=== PATIENT | female | born 1960 | race Caucasian/White ===

== ENCOUNTER 2019-10-09 17:17 | Emergency (ER) | payer OTHER, SELFPAY ==
[2019-10-09 17:50] VITALS: BP 153/73; PULSE 63; RESP 18; TEMP 36.6; O2SAT 100
--- NOTE | 2019-10-09 18:10 | ED.GENADULT ---
HPI - General Adult General Chief complaint: Upper Respiratory Infection Stated complaint: COUGH/SORE THROAT Source: patient and RN notes reviewed Mode of arrival: ambulatory Limitations: no limitations History of Present Illness HPI narrative: I just this patient has had onset of a sore throat x3 days. She states this never been severe and is actually better today than it has been. She is coughed only twice today and none previously and there is not been any chest pain or shortness of breath. She has not had any fever. She has had no nausea, no vomiting, no diarrhea. She has had no hematuria, no dysuria, no pyuria. She has had no rashes. She denies any ear pain or drainage from the ears. She has had no nasal drainage. She has been traveling. She is from [place] and is visiting her grandchildren here in [place]. She would like to be certain that she does not have strep throat before she goes to visit them this evening. She has had no known exposure to anyone with strep throat, mono, influenza, bronchitis, pneumonia that she is aware of. Related Data Home Medications Medication Instructions Recorded Confirmed [facility] 10/09/19 Allergies Allergy/AdvReac Type Severity Reaction Status Date / Time No Known Allergies Allergy Verified 10/09/19 17:59 Review of Systems Review of Systems: Narrative: CONSTITUTIONAL: Denies fever, chills, or sweats. Noncontributory except as pertains to the past medical history and history of present illness. EYES: Denies visual changes, redness, or discharge. ENT: Denies rhinorrhea, congestion, sore throat, or otalgia. CARDIOVASCULAR: Denies chest pain, palpitations, or edema. RESPIRATORY: Denies cough or dyspnea. GASTROINTESTINAL: Denies abdominal pain, nausea, vomiting, or diarrhea. GENITOURINARY: Denies dysuria or hematuria. SKIN: Denies rash or itching. MUSCULOSKELETAL: Denies back pain, joint pain, or myalgia. NEUROLOGIC: Denies headache, numbness, or weakness. PSYCHIATRIC: Denies anxiety or depression. PMFSH Comments At time of signature, I have reviewed and agree with nursing past medical, surgical, social, and family history.Please see nursing chart for further information. There is no relevant family history pertinent to the presenting complaint. Exam Narrative: Exam Narrative: GENERAL: Well-appearing, well-nourished, and in no acute distress. HEAD: Normocephalic, atraumatic. EYES: PERRLA and EOMI. EARS: TM's clear bilaterally and the canals are clear. NOSE: Nares clear, no rhinorrhea or epistaxis. THROAT:Mucous membranes moist.Oropharynx normal without erythema or exudates. NECK: Supple. No adenopathy of the neck, supraclavicular, axillary, or inguinal areas. RESPIRATORY: No respiratory distress. Airway patent. Respirations non-labored. Clear to auscultation. There are no wheezes, no rales, no retractions, no use accessory muscle respirations. Patient's not cyanotic and not dyspneic. Pulse ox on room air is 100% current temperature is 36.6 ?C. HEART: Regular rate and rhythm. No murmur heard. Normal peripheral pulses. ABDOMEN: Soft, nontender, nondistended, normal active bowel sounds.No masses. No rebound or guarding, No organomegaly. There is no CVA pain. No pain McBurney's point. She has a negative Hughes sign and negative Rovsing sign. There are no pulsatile masses no audible bruits. EXTREMITIES: No clubbing/cyanosis/ edema. Normal strength & range of motion. SKIN: Warm, dry.Normal color. There are no skin rash or skin lesions. She is well-nourished well-hydrated has moist mucous membranes and no tenting of the skin. NEURO: Alert and oriented. CN 2-12 grossly intact. No focal deficits. PSYCH: Normal mood and affect. Course Vital Signs Vital signs: Vital Signs Temperature 36.6 C 10/09/19 17:50 Pulse Rate 63 10/09/19 17:50 Respiratory Rate 18 10/09/19 17:50 Blood Pressure 153/73 H 10/09/19 17:50 Pulse Oximetry 100 10/09/19 17:50 Temperature
== END 2019-10-09 18:21 | disposition home or self-care (01) ==
PROVIDERS: Emergency Provider Family Medicine
DX: J02.9 Acute pharyngitis, unspecified (principal); I25.2 Old myocardial infarction; E78.00 Pure hypercholesterolemia, unspecified
CPT/HCPCS: 87081; 87147; 87880; 99203; G0463